=== PATIENT | female | born 1950 | race Caucasian/White ===

== ENCOUNTER → 2017-12-12 | Outpatient (CLI) | payer OTHER ==
[~2017-12-12] MED LIST: ADULT LOW DOSE81 MG PO; ATORVASTATIN CA40 MG PO; BENADRYL25 MG PO; CALCIUM 500+D1 EAC2 PO; CALCIUM 600 +1 EAC1 PO; CARDIZEM; CARDIZEM120 MG PO; CHLORTHALIDONE; CHLORTHALIDONE25 MG PO; CIPROFLOXACIN500 M1 PO; ENTOCORT EC 3 MG3 MG PO; GLUCOPHAGE1000 MG PO; IBUPROFEN 200200 M1 PO; INVOKANA300 MG PO; LIPITOR20 MG PO; MELATONIN5 M1 PO; MIRALAX17 GM PO; MULTIVITAMINS PO; NORCO 5-325 TA1 EACH PO; NORFLEX100 MG PO; PERCOCET 5-3251 EACH PO; PERCOCET PO; POTASSIUM CHLO20 ME2 PO; POTASSIUM20; PREDNISONE 5 MG5 M1 PO; PROBIOTIC1 EAC1 PO; PROTONIX40 M2 PO; SOMA250 MG PO; STOOL SOFTENER100 M1 PO; TRULICITY1.5 MG/0.5 SQ; TUMS PO; VALIUM5 MG PO; VICTOZA0.6 MG/0.1 SUBQ; VITAMIN D31000 UNIT PO; ZOFRAN ODT4 MG PO; ZOFRAN4 MG PO; ZYRTEC10 M2 PO
== END ==
LOC: RAD 16:27
DX: M50.30 Other cervical disc degeneration, unspecified cervical region (principal); M47.892 Other spondylosis, cervical region; M25.78 Osteophyte, vertebrae; M19.90 Unspecified osteoarthritis, unspecified site; R51 Headache

== ENCOUNTER → 2018-05-02 | Outpatient (CLI) | payer OTHER | LOC: RAD 01:47 | DX: Z12.31 Encounter for screening mammogram for malignant neoplasm of breast (principal) ==

== ENCOUNTER → 2018-06-03 | Outpatient (CLI) | payer OTHER | LOC: MRI 11:02 | DX: M65.871 Other synovitis and tenosynovitis, right ankle and foot (principal); M76.821 Posterior tibial tendinitis, right leg; M76.61 Achilles tendinitis, right leg; M77.31 Calcaneal spur, right foot; R60.0 Localized edema ==

== ENCOUNTER → 2019-05-19 | Outpatient (CLI) | payer OTHER | LOC: RAD 13:52 | DX: Z12.31 Encounter for screening mammogram for malignant neoplasm of breast (principal) ==

== ENCOUNTER → 2019-06-19 | Outpatient (CLI) | payer OTHER | LOC: CAT 13:43 | DX: K57.92 Diverticulitis of intestine, part unspecified, without perforation or abscess without bleeding (principal); I25.10 Atherosclerotic heart disease of native coronary artery without angina pectoris; J98.4 Other disorders of lung; N20.0 Calculus of kidney; I70.0 Atherosclerosis of aorta; M25.78 Osteophyte, vertebrae; M43.16 Spondylolisthesis, lumbar region; Z98.890 Other specified postprocedural states; M47.816 Spondylosis without myelopathy or radiculopathy, lumbar region; Z90.49 Acquired absence of other specified parts of digestive tract; Z90.722 Acquired absence of ovaries, bilateral ==

== ENCOUNTER → 2020-11-11 | Outpatient (CLI) | payer OTHER | LOC: BC 12:48 | PROVIDERS: ATTEND Internal Medicine | DX: Z12.31 Encounter for screening mammogram for malignant neoplasm of breast (principal) ==

== ENCOUNTER → 2020-12-02 | Outpatient (CLI) | payer OTHER | LOC: NUC 13:21 | PROVIDERS: ATTEND Specialist | DX: M85.88 Other specified disorders of bone density and structure, other site (principal); Z78.0 Asymptomatic menopausal state ==